=== PATIENT | male | born 1990 | race Two or more races ===

== ENCOUNTER 2022-01-07 16:24 | Emergency (ER) | payer MEDICAID, OTHER ==
[~2022-01-07] VITALS: Ht 172.7 cm; Wt 81.6 kg
[2022-01-07 16:54] VITALS: BP 144/83
[2022-01-07] MEDS ORDERED: KETOROLAC TROMETH 30 MG/ML 1ML VIAL IV ONE (19:30)
[2022-01-07] MEDS ORDERED: methylPREDNISolone SOD SUCC 125 MG/2 ML VL IM ONE (19:30)
[2022-01-07] MEDS ORDERED: DICL75TA3 PO (20:00)
== END 2022-01-07 20:33 | disposition home or self-care (01) ==
LOC: ER 16:24 → EDBD 16:24 → ER 20:33
DX: M25.562 Pain in left knee (principal); G89.21 Chronic pain due to trauma
CPT/HCPCS: 96372; 96374; 99283; J1885; J2930